=== PATIENT | male | born 1970 | race Two or more races ===

== ENCOUNTER 2018-09-27 13:19 | Outpatient (CLI) | payer MEDICARE, MEDICAID | END 2018-09-27 23:59 | disposition home or self-care (01) | LOC: WOU 13:19 | PROVIDERS: ATTEND Surgery | DX: T81.31XA Disruption of external operation (surgical) wound, not elsewhere classified, initial encounter (principal); Z85.040 Personal history of malignant carcinoid tumor of rectum; E46 Unspecified protein-calorie malnutrition; Z68.20 Body mass index [BMI] 20.0-20.9, adult; Z87.891 Personal history of nicotine dependence; Z92.21 Personal history of antineoplastic chemotherapy; Z96.0 Presence of urogenital implants; Z93.3 Colostomy status | CPT/HCPCS: 11042; 11043; A6402; A6407 ==